=== PATIENT | female | born 1995 | race Caucasian/White ===

== ENCOUNTER 2017-11-07 20:37 | Emergency (ER) | payer OTHER ==
--- NOTE | 2017-11-07 20:51 | ED Physician Documentation ---
General Adult - HISTORIAN Historian: patient, spouse - HPI Stated Complaint: allergic reaction Chief Complaint: General Adult Additional Information: fifteen minutes after takin her third dose of ibuprofen, lower lip and hands swelled and she had difficulty breathing. This occurred at 1999. Lip is now less swollen and breathing is easy. Discharged from hospital after giving to son two days ago, with script for ibuprofen. She is breast feeding the baby. No other modifying factors or associated signs. - ROS CONST: no problems - PAST HX Past History: other (multiple ear infections) Surgeries/Procedures: other (ear/ mastoidectomy?) Allergies/Adverse Reactions: Allergies Allergy/AdvReac Type Severity Reaction Status Date / Time No Known Allergies Allergy Verified 09/16/15 02:42 - SOCIAL HX Smoking History: non-smoker Alcohol Use: none Drug Use: none - FAMILY HX Family History: No - VITAL SIGNS Vital Signs: Vital Signs Temp Pulse Resp BP Pulse Ox 129/79 10/18/15 02:09 - REVIEWED ASSESSMENTS Nursing Assessment Reviewed: Yes Vitals Reviewed: Yes Progress - Progress Progress: 2130, Lip near normal size. Feels good. General Adult Physical Exam - PHYSICAL EXAM GENERAL APPEARANCE: mild distress EENT: eye inspection normal, pharynx normal (Mallampati 2), no signs of dehydration, other (lower lip puffy) NECK: normal inspection, supple. No: lymphadenopathy RESPIRATORY: no resp distress, breath sounds normal CVS: reg rate & rhythm, heart sounds normal BACK: normal inspection SKIN: warm/dry, normal color (except mild erythema of palms) EXTREMITIES: normal range of motion (gait and stance) NEURO: CN's nml as tested, motor nml, sensation nml Discharge Clincal Impression: Allergic reaction Qualifiers: Encounter type: initial encounter Qualified Code(s): T78.40XA - Allergy, unspecified, initial encounter Referrals: Satya Gamble MD [Primary Care Provider] - 2 Days Additional Instructions: Don't take any more ibuprofen. Return to the ER if your condition worsens. Condition: Good Disposition: 01 HOME, SELF-CARE Decision to Admit: NO Decision Time: 21:25
[2017-11-07 21:55] VITALS: BP 115/84
== END 2017-11-07 21:40 | disposition home or self-care (01) ==
LOC: ED 20:37
DX: T78.40XA Allergy, unspecified, initial encounter (principal); Y92.9 Unspecified place or not applicable; Y93.9 Activity, unspecified; Y99.9 Unspecified external cause status
CPT/HCPCS: 99282

== ENCOUNTER 2018-02-12 20:13 | Emergency (ER) | payer SELFPAY ==
--- NOTE | 2018-02-12 20:33 | ED Physician Documentation ---
Sore Throat/Dental Pain - HISTORIAN Historian: patient - HPI Stated Complaint: sore throat x 30 min Chief Complaint: Sore Throat Onset: minutes (30) Context: Possible Infection Associated Symptoms: sore throat. denies: fever, chills, unable to swallow, runny nose, congestion, R ear pain, L ear pain, cough Worsened By: nothing Further Comments: yes (per her report about 30 min ago she started to have a sore throat. No sick contacts. No fever. No cough or headache. No OTC meds have been tried) - ROS CONST: no problems CVS/RESP: none GI/: denies: nausea MS/SKIN/LYMPH: denies: rash NEURO/PSYCH: denies: headache - PAST HX Past History: other (ADHD) Immunizations: UTD Allergies/Adverse Reactions: Allergies Allergy/AdvReac Type Severity Reaction Status Date / Time No Known Allergies Allergy Verified 02/12/18 20:34 Home Medications: Ambulatory Orders Medication Instructions Recorded NK 02/12/18 - SOCIAL HX Smoking History: cigarettes Alcohol Use: none Drug Use: none - FAMILY HX Family History: No - VITAL SIGNS Vital Signs: Vital Signs Temp Pulse Resp BP Pulse Ox 82 16 136/79 02/12/18 20:52 02/12/18 20:52 02/12/18 20:52 - REVIEWED ASSESSMENTS Nursing Assessment Reviewed: Yes Vitals Reviewed: Yes ED Results Lab/Radiology - Orders Orders: ED Orders Category Date Time Status Rapid Strep [GRP A STREP SCREEN] Stat Lab 02/12/18 20:30 Ordered Sore throat Physical Exam - EXAM General Appearance: no acute distress, alert Head/Neck: head nml inspection, no lymphadenopathy. No: pain over sinuses, cervical lymphadenopathy Eyes: eyes nml inspection Mouth/Throat: lips nml, gums nml, pharynx nml, voice nml, no drooling, no air way problems, membranes nml Ear/Nose: nml inspection Respiratory: no resp. distress CVS: reg. rate & rhythm, heart sounds nml Abdomen: soft Extremities: non-tender Skin: warm/dry, normal color Neuro/Psych: oriented x3 Discharge Clincal Impression: Sore throat Referrals: Satya Gamble MD [Primary Care Provider] - 2 Days Additional Instructions: 1. OTC meds as directed for symptom management 2. Warm salt water gargles 3. Increase fluids 4. Follow up with PCP if no improvement in 2-4 days 5. Return to ER for any concerns Condition: Stable Disposition: 01 HOME, SELF-CARE Decision to Admit: NO Date of Decison to Admit: 02/12/18 Decision Time: 20:36
[2018-02-12 20:34] VITALS: BP 136/79
== END 2018-02-12 20:52 | disposition home or self-care (01) ==
LOC: ED 20:13
DX: J02.9 Acute pharyngitis, unspecified (principal)
CPT/HCPCS: 87070; 87880; 99282